=== PATIENT | male | born 1930 | race Caucasian/White ===

== ENCOUNTER 2016-07-25 06:15 | Inpatient (IN) | payer OTHER ==
[~2016-07-25] VITALS: Ht 180.3 cm; Wt 85.3 kg
[2016-07-25 06:47] LABS: HEMOGLOBIN 15.3 gm/dl (14.0-17.5); RED BLOOD COUNT 5.4 M/UL (4.20-5.50); WHITE BLOOD COUNT 20.2 K/UL (4.5-11.0)
[2016-07-25 07:13] LABS: BUN/CREATININE RATIO 20 (0-10)
[2016-07-25] MEDS ORDERED: METOPROLOL TAR100 MG PO (10:30)
[2016-07-25] MEDS ORDERED: ARICEPT10 MG PO (10:31)
[2016-07-25] MEDS ORDERED: PREVACID30 MG PO (10:31)
[2016-07-25] MEDS ORDERED: LEVOTHYROXINE25 MCG PO (10:32)
[2016-07-25] MEDS ORDERED: FINASTERIDE5 MG PO (10:32)
[2016-07-25] MEDS ORDERED: LISINOPRIL20 MG PO (10:33)
[2016-07-25] MEDS ORDERED: VITAMIN D50000 UNIT PO (10:34)
[2016-07-25] MEDS ORDERED: DIGOXIN125 MCG PO (10:34)
[2016-07-25] MEDS ORDERED: NORVASC 5 MG TAB5 MG PO (10:35)
[2016-07-25] MEDS ORDERED: FLOMAX 0.4 MG0.4 MG PO (10:35)
[2016-07-26 04:20] LABS: BUN/CREATININE RATIO 20 (0-10)
[2016-07-26 05:21] LABS: WHITE BLOOD COUNT 15.9 K/UL (4.5-11.0)
[2016-07-26 05:31] LABS: HEMOGLOBIN 12.4 gm/dl (14.0-17.5); RED BLOOD COUNT 4.44 M/UL (4.20-5.50)
[2016-07-26] MEDS ORDERED: AUGMENTIN TAB875 MG PO (17:20)
[2016-07-26] MEDS ORDERED: COUMADIN7.5 MG PO (17:22)
== END 2016-07-26 18:07 | disposition home or self-care (01) | DRG 193 ==
LOC: ER1 06:15 → ZEROF 09:42 → PROG CARE 09:42
PROVIDERS: Family Medicine; ADMIT Internal Medicine
DX: J18.9 Pneumonia, unspecified organism (principal); J96.21 Acute and chronic respiratory failure with hypoxia; J96.22 Acute and chronic respiratory failure with hypercapnia; E87.2 Acidosis; I10 Essential (primary) hypertension; I48.91 Unspecified atrial fibrillation; R22.40 Localized swelling, mass and lump, unspecified lower limb; N40.0 Benign prostatic hyperplasia without lower urinary tract symptoms; Z95.0 Presence of cardiac pacemaker; Z88.5 Allergy status to narcotic agent; Z83.3 Family history of diabetes mellitus; Z82.49 Family history of ischemic heart disease and other diseases of the circulatory system; Z79.899 Other long term (current) drug therapy
CPT/HCPCS: ECHO; 36415; 36600; 71010; 80048; 80053; 82550; 82553; 82803; 83605; 83690; 83874; 83880; 84484; 85025; 85610; 85730; 87040; 93005; 93306; 94640; 94660; 94664; 99285; J0456; J0696; J1940; J7030; J7050; Q0163

== ENCOUNTER → 2016-08-18 | Outpatient (CLI) | payer OTHER ==
[~2016-08-18] MED LIST: ARICEPT10 MG PO; AUGMENTIN TAB875 MG PO; COUMADIN7.5 MG PO; DIGOXIN125 MCG PO; FINASTERIDE5 MG PO; FLOMAX 0.4 MG0.4 MG PO; LEVOTHYROXINE25 MCG PO; LISINOPRIL20 MG PO; METOPROLOL TAR100 MG PO; NORVASC 5 MG TAB5 MG PO; PREVACID30 MG PO; VITAMIN D50000 UNIT PO
== END ==
LOC: CT 06:58
DX: J18.9 Pneumonia, unspecified organism (principal)
CPT/HCPCS: 36415; 71260; 82565; 84520; J7050; Q9962

== ENCOUNTER → 2016-09-27 | Outpatient (CLI) | payer OTHER ==
[2016-09-27 10:03] LABS: BUN/CREATININE RATIO 23 (0-10)
== END ==
LOC: LAB 08:59
PROVIDERS: Internal Medicine Pulmonary Disease
DX: I50.30 Unspecified diastolic (congestive) heart failure (principal); J90 Pleural effusion, not elsewhere classified; R91.8 Other nonspecific abnormal finding of lung field
CPT/HCPCS: 36415; 71020; 80048; 83880